=== PATIENT | female | born 1995 | race Two or more races ===

== ENCOUNTER 2024-12-02 11:48 | Observation (INO) | payer MEDICAID, SELFPAY ==
[2024-12-02] VITALS (17 sets, daily range): BP systolic 127–143; BP diastolic 77–96; PULSE 83–104; RESP 16–98; TEMP 36.7; O2SAT 97–98; BMI 36.5
[2024-12-02 13:03] LABS: Collection Type, Urine Clean Catch
[2024-12-02 13:04] LABS: Basophils % (Auto) 0 % (0-2.5); Eosinophils # (Auto) 0.2 Thou/mm3 (0.0-0.5); Eosinophils % (Auto) 2 % (0-10); Hematocrit 34.9 % (36.0-46.0); Hemoglobin 12.3 g/dL (12.0-16.0); Immature Granulocytes % (Auto) 0 % (0-0); Immature Granulocytes Auto 0.04 Thou/mm3 (0.00-0.00); Lymphocytes # (Auto) 2.4 Thou/mm3 (1.0-4.8); Lymphocytes % (Auto) 24 % (10-50); Mean Corpuscular HGB Conc 35.2 g/dl (31.0-37.0); Mean Corpuscular Volume 85 fL (80-100); Monocytes # (Auto) 0.6 Thou/mm3 (0.0-0.8); Monocytes % (Auto) 7 % (0-12); Neutrophils # (Auto) 6.6 Thou/mm3 (1.8-7.7); Neutrophils % (Auto) 67 % (37-80); Nucleated Red Blood Cell % 0 /100 WBC (0); Platelet Count 269 Thou/mm3 (140-440); RDW Standard Deviation 40.1 fL (36.4-46.3); White Blood Count 9.8 Thou/mm3 (3.6-11.0)
[2024-12-02 13:11] LABS: Bacteria,Urine Rare; Bilirubin,Urine Negative (Negative); Blood,Urine Negative (Negative); Clarity,Urine Clear (Clear/Hazy); Color,Urine Colorless (Lt Yel-Yel); Glucose, Urine Negative (Negative); Ketones,Urine Negative (Negative); Leukocyte Esterase,Urine Negative (Negative); Nitrite,Urine Negative (Negative); PH,Urine 6.5 (5.0-7.0); Protein,Urine Negative (Neg - Trace); RBC,Urine 1 /hpf (0-3); Specific Gravity,Urine 1.005 (1.001-1.035); Squamous Epithelial Cell,Urine 5 /hpf (0-5); Urobilinogen,Urine Negative mg/dL (0.0-1.0); WBC,Urine 1 /hpf (0-5)
[2024-12-02 13:33] LABS: Alanine Aminotransferase 21 U/L (10-49); Albumin, Serum 4.2 gm/dL (3.5-5.0); Albumin/Globulin Ratio 1.4 (1.2-2.2); Alkaline Phosphatase 159 U/L (46-116); Anion Gap 9 (7-16); Aspartate Amino Transferase 21 U/L (0-34); BUN/Creatinine Ratio 20 Ratio (12-20); Bilirubin,Total 0.4 mg/dL (0.3-1.2); Blood Urea Nitrogen 10 mg/dL (9-23); Calcium 9.9 mg/dL (8.3-10.6); Calcium (Corrected) 9.9 mg/dL (8.5-10.1); Carbon Dioxide 22.1 mMol/L (20.0-31.0); Chloride 104 mMol/L (98-107); Creatinine (Component) 0.5 mg/dL (0.6-1.3); Estimated Creatinine Clearance 156.8 mL/min (>60); Globulin 2.9 gm/dL (2.3-3.5); Glucose 67 mg/dL (74-106); LDH (Lactate Dehydrogenase) 166 U/L (120-246); Osmolality,Calculated 267 (275-295); Potassium 3.8 mMol/L (3.4-5.1); Sodium 135 mMol/L (136-145); Total Protein 7.1 gm/dL (5.7-8.2); Uric Acid 5.7 mg/dL (3.1-7.8); eGFR > 60 See Note
[2024-12-02 13:58] LABS: INR 0.9 (0.9-1.3); Partial Thromboplastin Time 29.5 Seconds (22.0-36.0)
[2024-12-02 13:59] LABS: Fibrinogen 620 mg/dL (175-375)
[2024-12-02] MEDS: BETAMET ACET/BETAMET NA PH (Celestone) 6 MG/ML VIAL 12 MG IM (14:32)
== END 2024-12-02 14:40 | disposition home or self-care (01) ==
PROVIDERS: Admitting Provider Specialist; Visit Provider Specialist
DX: O16.3 Unspecified maternal hypertension, third trimester (principal); Z3A.36 36 weeks gestation of pregnancy
CPT/HCPCS: 36415; 59899; 80053; 81001; 83615; 84550; 85025; 85384; 85610; 85730; 96372; J0702

== ENCOUNTER 2024-12-03 14:22 | Outpatient (CLI) | payer MEDICAID, SELFPAY ==
[2024-12-03] VITALS (40 sets, daily range): BP systolic 111–151; BP diastolic 62–97; PULSE 86–115; RESP 16–98; TEMP 36.6; O2SAT 96–100; BMI 36.8
[2024-12-03] MEDS: BETAMET ACET/BETAMET NA PH (Celestone) 6 MG/ML VIAL 12 MG IM (14:42)
[2024-12-03 15:56] LABS: Collection Type, Urine Clean Catch
[2024-12-03 15:58] LABS: Basophils % (Auto) 0 % (0-2.5); Eosinophils % (Auto) 0 % (0-10); Hematocrit 33.6 % (36.0-46.0); Hemoglobin 11.3 g/dL (12.0-16.0); Immature Granulocytes % (Auto) 2 % (0-0); Immature Granulocytes Auto 0.21 Thou/mm3 (0.00-0.00); Lymphocytes # (Auto) 2.4 Thou/mm3 (1.0-4.8); Lymphocytes % (Auto) 18 % (10-50); Mean Corpuscular HGB Conc 33.6 g/dl (31.0-37.0); Mean Corpuscular Hemoglobin 29.6 pg (25.0-35.0); Mean Corpuscular Volume 88 fL (80-100); Monocytes # (Auto) 0.8 Thou/mm3 (0.0-0.8); Monocytes % (Auto) 6 % (0-12); Neutrophils # (Auto) 9.7 Thou/mm3 (1.8-7.7); Neutrophils % (Auto) 74 % (37-80); Nucleated Red Blood Cell % 0 /100 WBC (0); Platelet Count 257 Thou/mm3 (140-440); RDW Standard Deviation 41.8 fL (36.4-46.3); Red Blood Count 3.82 Miln/mm3 (4.00-5.20); White Blood Count 13.2 Thou/mm3 (3.6-11.0)
[2024-12-03 16:03] LABS: Bacteria,Urine 1+; Bilirubin,Urine Negative (Negative); Blood,Urine Negative (Negative); Clarity,Urine Turbid (Clear/Hazy); Glucose, Urine Negative (Negative); Ketones,Urine Negative (Negative); Leukocyte Esterase,Urine Negative (Negative); Nitrite,Urine Negative (Negative); Protein,Urine Negative (Neg - Trace); RBC,Urine 1 /hpf (0-3); Specific Gravity,Urine 1.006 (1.001-1.035); Squamous Epithelial Cell,Urine 22 /hpf (0-5); Urobilinogen,Urine Negative mg/dL (0.0-1.0); WBC,Urine 1 /hpf (0-5)
[2024-12-03 16:04] LABS: Color,Urine Lt-Yellow (Lt Yel-Yel)
[2024-12-03 16:05] LABS: Protein Total, Urine Volume 2450 mL/24hr (600-1800)
[2024-12-03 16:06] LABS: Total Volume,Urine 2450 mL (600-1800)
[2024-12-03 16:08] LABS: Creatinine 24 Hour,Urine 1.2 gm/24hr (0.6-1.5); Creatinine,Urine 49 mg/dL (30-125); Patient Height,Urine 59 Inches; Patient Weight,Urine 183 Pounds; Protein Total, 24 hr Urine 809 mg/24hr (<149); Protein Total, Urine 33 mg/dL (1-14)
[2024-12-03 16:16] LABS: Alanine Aminotransferase 19 U/L (10-49); Albumin, Serum 3.9 gm/dL (3.5-5.0); Albumin/Globulin Ratio 1.4 (1.2-2.2); Alkaline Phosphatase 141 U/L (46-116); Anion Gap 10 (7-16); Aspartate Amino Transferase 11 U/L (0-34); BUN/Creatinine Ratio 18 Ratio (12-20); Bilirubin,Total 0.3 mg/dL (0.3-1.2); Blood Urea Nitrogen 9 mg/dL (9-23); Calcium 9.2 mg/dL (8.3-10.6); Calcium (Corrected) 9.3 mg/dL (8.5-10.1); Carbon Dioxide 20.8 mMol/L (20.0-31.0); Chloride 104 mMol/L (98-107); Creatinine (Component) 0.5 mg/dL (0.6-1.3); Estimated Creatinine Clearance 157.4 mL/min (>60); Globulin 2.8 gm/dL (2.3-3.5); Glucose 93 mg/dL (74-106); LDH (Lactate Dehydrogenase) 194 U/L (120-246); Osmolality,Calculated 268 (275-295); Potassium 4.2 mMol/L (3.4-5.1); Sodium 135 mMol/L (136-145); Total Protein 6.7 gm/dL (5.7-8.2); Uric Acid 5.4 mg/dL (3.1-7.8); eGFR > 60 See Note
[2024-12-03 16:30] LABS: Fibrinogen 524 mg/dL (175-375); INR 0.9 (0.9-1.3); Partial Thromboplastin Time 28.5 Seconds (22.0-36.0)
[2024-12-03 17:30] LABS: Collection Time,Urine 24 Hours; Creatinine Clearance Urine 163 mL/min (90-139); Serum Creatinine Result 0.5 mg/dL
== END 2024-12-03 17:30 | disposition home or self-care (01) ==
LOC: S4S1 14:24 → S4SX 14:24
PROVIDERS: Referring Provider Specialist; Visit Provider Specialist
DX: Z34.83 Encounter for supervision of other normal pregnancy, third trimester (principal); Z36.89 Encounter for other specified antenatal screening; Z3A.36 36 weeks gestation of pregnancy
CPT/HCPCS: 36415; 59025; 80053; 81001; 82575; 83615; 84156; 84550; 85025; 85384; 85610; 85730; 96372; J0702

== ENCOUNTER 2024-12-07 13:19 | Inpatient (IN) | payer MEDICAID, SELFPAY ==
[2024-12-07] VITALS (38 sets, daily range): BP systolic 121–166; BP diastolic 81–104; PULSE 82–96; RESP 14–98; TEMP 36.6–37.3; O2SAT 97–100; BMI 37.3
[2024-12-07] MEDS: RINGERS LACTATED 1000 ML 1,000 ML 100 ML IV (14:27)
[2024-12-07 14:32] LABS: Basophils % (Auto) 0 % (0-2.5); Eosinophils # (Auto) 0.2 Thou/mm3 (0.0-0.5); Eosinophils % (Auto) 1 % (0-10); Hematocrit 34.1 % (36.0-46.0); Hemoglobin 11.9 g/dL (12.0-16.0); Immature Granulocytes % (Auto) 1 % (0-0); Immature Granulocytes Auto 0.16 Thou/mm3 (0.00-0.00); Lymphocytes # (Auto) 2.5 Thou/mm3 (1.0-4.8); Lymphocytes % (Auto) 21 % (10-50); Mean Corpuscular HGB Conc 34.9 g/dl (31.0-37.0); Mean Corpuscular Hemoglobin 29.6 pg (25.0-35.0); Mean Corpuscular Volume 85 fL (80-100); Monocytes # (Auto) 0.6 Thou/mm3 (0.0-0.8); Monocytes % (Auto) 5 % (0-12); Neutrophils # (Auto) 8.6 Thou/mm3 (1.8-7.7); Neutrophils % (Auto) 71 % (37-80); Nucleated Red Blood Cell % 0 /100 WBC (0); Platelet Count 251 Thou/mm3 (140-440); RDW Standard Deviation 40.2 fL (36.4-46.3); Red Blood Count 4.02 Miln/mm3 (4.00-5.20); White Blood Count 12.1 Thou/mm3 (3.6-11.0)
--- NOTE | 2024-12-07 14:42 | PD.LDHP ---
Documentation for date of: 12/07/24 OB Labor/Induct. HPI History of Present Illness History of present illness: H and P dictated on STAT line #9 in [facility] [id number] History of Present Adequate Care: Yes Labs Labs: Negative: Chlamydia and Gonorrhea Meds Home Medications and Allergies Home Medications ?Medication ?Instructions ?Recorded ?Confirmed ?Type bridtcru-uaf-Hh-FA 1 mg 1 tab PO QDAY 12/02/24 12/03/24 History tablet Allergies Allergy/AdvReac Type Severity Reaction Status Date / Time bee venom protein (honey bee) Allergy Mild Redness of Verified 12/03/24 15:07 Skin pineapple Allergy Mild TONGUE Verified 12/03/24 15:07 BURNING, THROAT FEELS LIKE IT IS CLOSING OB Exam Physical Exam Vital signs: Temp Pulse Resp BP Pulse Ox 97.9 F 88 22 H 151/91 H 98 12/07/24 13:36 12/07/24 14:41 12/07/24 13:36 12/07/24 14:41 12/07/24 14:40 OB Results Labs 12/07/24 14:10 12/07/24 14:10 Labs: Short CBC 12/07/24 Range/Units 14:10 WBC 12.1 H (3.6-11.0) Thou/mm3 Hgb 11.9 L (12.0-16.0) g/dL Hct 34.1 L (36.0-46.0) % Plt Count 251 (140-440) Thou/mm3
[2024-12-07 14:43] LABS: Collection Type, Urine Clean Catch
[2024-12-07 14:50] LABS: Alanine Aminotransferase 19 U/L (10-49); Albumin, Serum 3.8 gm/dL (3.5-5.0); Albumin/Globulin Ratio 1.4 (1.2-2.2); Alkaline Phosphatase 144 U/L (46-116); Anion Gap 8 (7-16); Aspartate Amino Transferase 18 U/L (0-34); BUN/Creatinine Ratio 20 Ratio (12-20); Bilirubin,Total 0.3 mg/dL (0.3-1.2); Blood Urea Nitrogen 8 mg/dL (9-23); Calcium (Corrected) 9.2 mg/dL (8.5-10.1); Carbon Dioxide 24.9 mMol/L (20.0-31.0); Chloride 103 mMol/L (98-107); Creatinine (Component) 0.4 mg/dL (0.6-1.3); Estimated Creatinine Clearance 198.4 mL/min (>60); Globulin 2.8 gm/dL (2.3-3.5); Glucose 79 mg/dL (74-106); LDH (Lactate Dehydrogenase) 195 U/L (120-246); Osmolality,Calculated 269 (275-295); Sodium 136 mMol/L (136-145); Total Protein 6.6 gm/dL (5.7-8.2); Uric Acid 4.9 mg/dL (3.1-7.8); eGFR > 60 See Note
[2024-12-07 14:54] LABS: Fibrinogen 421 mg/dL (175-375); INR 0.9 (0.9-1.3); Partial Thromboplastin Time 27.6 Seconds (22.0-36.0); Prothrombin Time 10.1 Seconds (9.0-12.2)
[2024-12-07 15:01] LABS: Bacteria,Urine 1+; Bilirubin,Urine Negative (Negative); Blood,Urine 3+ (Negative); Clarity,Urine Turbid (Clear/Hazy); Color,Urine Colorless (Lt Yel-Yel); Glucose, Urine Negative (Negative); Ketones,Urine Negative (Negative); Leukocyte Esterase,Urine Positive (Negative); Nitrite,Urine Negative (Negative); Protein,Urine Trace (Neg - Trace); RBC,Urine 7 /hpf (0-3); Specific Gravity,Urine 1.006 (1.001-1.035); Squamous Epithelial Cell,Urine 5 /hpf (0-5); Urobilinogen,Urine Negative mg/dL (0.0-1.0); WBC,Urine 8 /hpf (0-5)
[2024-12-07] MEDS: CITRIC ACID/SODIUM CITR 15 ML UDC (BICITRA) 30 ML PO (15:03)
[2024-12-07] MEDS: FAMOTIDINE INJ 10 MG/ML VIAL 2 ML 20 MG IV (15:03)
[2024-12-07] MEDS: ceFAZolin/D5W 2 GM IV 2 GM/100 ML BAG IV (15:04)
[2024-12-07 15:08] LABS: Syphilis Nonreactive (Nonreactive)
[2024-12-07] MEDS: METOCLOPRAMIDE INJ 5 MG/ML VIAL 2 ML 10 MG IVP (15:10)
--- NOTE | 2024-12-07 15:10 | ESHP_ITS ---
RE: TEAGAN CUEVAS : 1995 DATE OF ADMISSION: 12/07/2024 HISTORY OF PRESENT ILLNESS: This is a 29-year-old 3 para 2 with due date of 01/04 with intrauterine at 36 weeks and 0 days with preeclampsia who presents to labor and delivery complaining of vaginal bleeding. The patient has had two previous deliveries and has a history of placental abruption at 36 weeks in the past. She was diagnosed with preeclampsia on 12/03. The 24-hour urine at that time revealed 809 mg of protein and she underwent betamethasone injection on 12/02 and 12/03. Subsequently, her blood sugars had been less than 160/110 until she presented to Labor and Delivery today with blood pressures of 159/104 and 154/98, reporting that she passed three walnut-sized clots when she woke up from a nap and she proceeded immediately to labor and delivery. ALLERGIES: NO KNOWN DRUG ALLERGIES. MEDICATIONS: multivitamin 1 tablet p.o. daily. PAST MEDICAL HISTORY: Preeclampsia, placental abruption, cervical dysplasia, appendicitis. PAST SURGICAL HISTORY: Appendectomy, delivery x2. Exploratory Laparatomy, evacuation of pelvic abscess, lysis of adhesions. FAMILY HISTORY: Maternal grandmother, diabetes. Maternal uncle, diabetes. OBSTETRIC HISTORY: 2016, 34 weeks, delivery 5 pound 6 ounce male, complicated by placental abruption. 2019, 37 weeks delivery, 7 pound 7 ounce female delivery. REVIEW OF SYSTEMS: She denies any chest pain, palpitations, cough, fever, shortness of breath, and lower extremity pain. She denies any headache, change in vision or right upper quadrant pain. She reports normal movement. She denies any leaking. PHYSICAL EXAMINATION: VITAL SIGNS: Blood pressure 159/104, heart rate 88, respirations 18, temperature 98.6. HEENT: Oropharynx and sclerae are clear. LUNGS: Clear to auscultation bilaterally. HEART: Regular rate and rhythm. ABDOMEN: Gravid with fundus at 35 cm. Old Pfannenstiel scar noted. PELVIC: Exam deferred. EXTREMITIES: Nontender. SKIN: No gross or lesion. NEUROLOGIC: No focal deficit. ASSESSMENT: Intrauterine at 36 weeks and 0 days, preeclampsia, suspected placental abruption, prior delivery elects repeat delivery. PLAN: delivery. Informed consent was obtained. The patient was made aware of the risks, complications, alternatives, and benefits of the proposed procedure and she agrees. DT: 14:40:04 TT: 15:08:00 Ref: [id number] - TID: [id number] MTDD
--- NOTE | 2024-12-07 15:32 | PD.LDDS ---
DS: Providers Provider Date of admission: 12/07/24 13:40 Primary care physician: Physician No Primary/Family Admitting Provider: Phani Biggs MD Attending Provider on Admission: Phani Biggs MD Attending Provider on DC: Phani Biggs MD Discharging Provider: Phani Biggs MD DS: Diagnosis Discharge Diagnosis (1) Third trimester bleeding, antepartum: Status: Acute (2) Preeclampsia: Status: Acute (3) S/P section: Status: Acute Problem List Completed Was Problem List Reviewed/Reconciled?: Yes Summary/Hosp Course Brief History: H and P dictated on STAT line #9 in [facility] [id number] Peripartum Data Procedures: Procedures Operation Date: 12/07/24 15:15 <No data on this case meets the specified criteria> Time Spent with Patient Time attestation: Total time spent providing and/or coordinating discharge services: Exam Vital Signs Temp Pulse Resp BP Pulse Ox 97.9 F 86 22 H 166/90 H 97 12/07/24 13:36 12/07/24 15:12 12/07/24 13:36 12/07/24 15:12 12/07/24 15:20 Discharge Plan Plan Patient Disposition: HOME (Self Care) Patient condition on transfer: Stable Prescriptions/Referrals Prescriptions/Med Rec: New hydrocodone-acetaminophen 5-325 mg tablet 1 tab PO Q6H MDD 4 PRN (Reason: pain) Qty: 20 0RF ibuprofen 600 mg tablet 600 mg PO Q6H PRN (Reason: pain) Qty: 30 0RF amoxicillin-pot clavulanate 875-125 mg tablet 1 tab PO Q12H Qty: 10 0RF sulfamethoxazole-trimethoprim [Bactrim DS] 800-160 mg tablet 1 tab PO Q12H Qty: 10 0RF ferrous sulfate 325 mg (65 mg iron) tablet 325 mg PO QDAY Qty: 60 1RF Continued wwxbrrkl-ves-Da-FA 1 mg Tablet 1 tab PO QDAY Referrals: No Primary/Family,Physician [Primary Care Provider] - Patient/Caregiver Discharge Instructions Discharge Activity: activity as tolerated Other Discharge Activity Instructions:: Follow up office 1 week. Education Materials: : Caring for Yourself, C Section Dc Print Language: Slovenian Activity Restrictions/Additional Instructions: Please follow up with your OB doctor in 1 week. sooner if needed. call today for a appointment Stand Alone Forms: Hallie Patino Info., Patient Portal Info Letter Discharge Order Discharge Orders: Discharge (Routine); Ordered 12/10/24 Ordered By: Phani Biggs Planned Discharge Date 12/11/24
--- NOTE | 2024-12-07 16:51 | PD.LDDELS ---
Data (Evangelista) Data Hx Section: Yes : 3 Para: 2 Term: 0 : 0 : 0 Delivery Data (Evangelista) Labor Data ROM Date: 12/07/24 ROM Time: 16:10 Rupture Type: AROM Amniotic Fluid: Clear Delivery Data EDC: 01/04/25 EDC calculated by:: LMP/early US confirmation Labor Onset Stage 1 Date: 12/07/24 Labor Onset Stage 1 Time: 16:10 Labor Onset Stage 2 Date: 12/07/24 Labor Onset Stage 2 Time: 16:10 Delivery Date: 12/07/24 Delivery Time: 16:10 Gestational age (weeks): 36 Gestational age (days): 0 Placenta Delivery Date: 12/07/24 Placenta Delivery Time: 16:10 Delivered by: Phani Biggs Delivery nurse: Jaylin Munguia Other staff at delivery: Nursery Nurse Other staff at delivery: Alana Melgar Delivery Method Delivery: Delivery Type: Repeat Presentation: Transverse Anesthesia Type Primary Anesthesia: Spinal Delivery Room Medications Other Intrapartum Medications: Yes Placenta Placenta Delivery: Manual Cord Sample: Cord Blood Obtained EBL Estimated blood loss (ml): 700 Umbilical Cord Placenta/Cord Complication: Placental Abruption Umbilical Vessels: 3 Nuchal Cord: None Body Cord: None Additional Procedures Lysis of adhesions Complications Complications: None [place] Data (Evangelista) Data Gender: Male Identification Band Number: [id number] Infant Weight Grams: 2610 1 Minute Total: 9 5 Minute Total: 9
[2024-12-07] MEDS: KETOROLAC INJ 30 MG/ML VIAL IVP (19:09)
--- NOTE | 2024-12-07 20:07 | ESOP_ITS ---
RE: TEAGAN CUEVAS : 1995 DATE OF OPERATION: 12/07/2024 PREOPERATIVE DIAGNOSES: 1. Intrauterine at 36 weeks. 2. Preeclampsia. 3. Third trimester vaginal bleeding. 4. Previous delivery, elects repeat delivery. POSTOPERATIVE DIAGNOSES: 1. Intrauterine at 36 weeks. 2. Preeclampsia. 3. Third trimester vaginal bleeding. 4. Previous delivery, elects repeat delivery. 5. Placental abruption. 6. Severe pelvic adhesions. 7. Malpresentation of fetus. PROCEDURE PERFORMED: Primary classical uterine incision via Pfannenstiel skin incision and lysis of adhesions. SURGEON: Phani Biggs DO SUPPLY COORDINATOR: GUILLE Ha ANESTHESIA: Spinal. ANESTHESIOLOGIST: Papa Flores CRNA ESTIMATED BLOOD LOSS: 700 mL COMPLICATIONS: None. COUNTS: Correct. PATHOLOGY: None. FINDINGS: A live male infant, transverse presentation, back up. Apgars 9/9, weight 2610 g, clear amniotic fluid, placental abruption, severe pelvic adhesions of the uterus to the anterior abdominal wall, the bowel to both uterosacral ligaments and broad ligament on both sides of the uterus. DESCRIPTION OF PROCEDURE: After proper informed consent was obtained and the patient was made aware of the risks, complications, alternatives, and benefits of the proposed procedure, she was taken to the operating room where she underwent induction of spinal anesthesia. She was placed in the dorsal lithotomy position. She was prepped and draped in the usual sterile fashion. A timeout was performed. A Pfannenstiel skin incision was made with the scalpel carried through to the underlying fascia with the Bovie. The fascia was nicked in the midline. Incision was extended bilaterally to the Bovie. The inferior aspect of the fascial incision was grasped with Kayleen clamps and elevated. The underlying rectus was dissected off with the Bovie. The rectus muscle was in the midline. The superior aspect of the fascial incision was grasped with Kayleen clamps and elevated, and the underlying rectus muscle dissected off. The entire abdomen, peritoneal cavity was then exposed and severe pelvic adhesions noted. The adhesions were lysed to free up the uterus with the Enseal X1 Large Jaw. The midline and fundal aspects of the uterus were visualized, but due to the severe adhesions and the transverse presentation of the fetus, the decision was made to perform a midline uterine incision or classical uterine incision. The incision was extended to the myometrium. When the cavity opened up, the placental abruption was evident. The placenta was anterior and was removed and the infant was converted from transverse to cephalic and delivered. The cord was clamped and cut. The mouth and nose were suctioned with bulb suction. Infant was sent off to the waiting pediatric staff. Cord blood was sent. The placenta was removed manually. The uterus was exteriorized and cleared of all clots and debris. The uterine incision was closed in 3 layers with 1 chromic catgut suture and hemostasis was achieved. Attention was then turned to the remaining adhesions, which were lysed with the Enseal X1 Large Jaw. Pelvis was copiously irrigated with warm normal saline solution. The muscle and peritoneum could not be closed as no suitable tissue was available for allowing closure. The fascia was then closed beginning at each angle and ending in the center in a running fashion with 0 Vicryl. The subcutaneous tissue was irrigated from normal saline solution and found to be hemostatic and closed with 2-0 chromic catgut suture in running fashion. The skin was closed with 4-0 Monocryl. A Dermabond Prineo dressing was applied. A sterile pressure dressing was applied. She tolerated the procedure well. Counts were correct. I discussed with the patient, the nature of her condition, the intraoperative findings, and expectation for recovery. All questions answered. DT: 16:57:01 TT: 20:06:00 Ref: [id number] - TID: [id number]
[2024-12-07] MEDS: cefTRIAXone/D5w 1gm IV premix 50 ML IV (20:36)
[2024-12-07 23:13] LABS: Amphetamine/Metham Scrn,Ur OB Negative (Negative); Benzoylecgonine Screen, Ur OB Negative (Negative); Opiate Screen,Urine OB Negative (Negative); THC Screen,Urine OB Negative (Negative)
[2024-12-07 23:23] LABS: Basophils % (Auto) 0 % (0-2.5); Eosinophils % (Auto) 0 % (0-10); Hematocrit 28.1 % (36.0-46.0); Hemoglobin 9.9 g/dL (12.0-16.0); Immature Granulocytes % (Auto) 1 % (0-0); Immature Granulocytes Auto 0.17 Thou/mm3 (0.00-0.00); Lymphocytes # (Auto) 1.1 Thou/mm3 (1.0-4.8); Lymphocytes % (Auto) 5 % (10-50); Mean Corpuscular HGB Conc 35.2 g/dl (31.0-37.0); Mean Corpuscular Volume 85 fL (80-100); Monocytes # (Auto) 0.4 Thou/mm3 (0.0-0.8); Monocytes % (Auto) 2 % (0-12); Neutrophils # (Auto) 20.2 Thou/mm3 (1.8-7.7); Neutrophils % (Auto) 92 % (37-80); Nucleated Red Blood Cell % 0 /100 WBC (0); Platelet Count 242 Thou/mm3 (140-440); RDW Standard Deviation 40.9 fL (36.4-46.3)
[2024-12-07] MEDS: OXYTOCIN in NS 20 units 20 UNIT/1,000 ML BAG 125 UNIT IV (23:50)
[2024-12-08] MEDS: KETOROLAC INJ 30 MG/ML VIAL IVP (02:18)
[2024-12-08 03:30] VITALS: BP 129/80; PULSE 82; RESP 18; TEMP 36.9; O2SAT 97
--- NOTE | 2024-12-08 07:19 | ESPR_ITS ---
RE: TEAGAN CUEVAS : 1995 DATE OF SERVICE: 12/08/2024 SUBJECTIVE: Postoperative day #1, the patient denies any problem or complaint. She has got adequate urine output with Parekh catheter in place. She denies any excessive vaginal bleeding. She denies any dizziness or lightheadedness. She denies any chest pain, palpitations, shortness of breath, or lower extremity pain. She is passing flatus. OBJECTIVE: Vital Signs: Blood pressure 129/80, heart rate 82, respirations 18, temperature 98.5, pulse ox is 97% on room air. Lungs: Clear to auscultation bilaterally. Heart: Regular rate and rhythm. Abdomen: Dressing dry and intact, nondistended. Extremities: Nontender. LABORATORY DATA: Hemoglobin pre-delivery is 11.9, post-delivery is 9.9. ASSESSMENT: 1. Postoperative day #1, status post delivery with lysis of adhesions. 2. Urinary tract infection. PLAN: Remove dressing. Encourage ambulation. Possible discharge home tomorrow. DT: 05:40:41 TT: 06:31:00 Ref: [id number] - TID: [id number] MTDD
[2024-12-08 08:00] VITALS: BP 141/95; PULSE 88; RESP 19; TEMP 36.9; O2SAT 97
[2024-12-08] MEDS: HYDROcodone/APAP 5/325 TABLET 1 TAB PO (08:45)
[2024-12-08] MEDS: SIMETHICONE 80 MG CHEW PO ×2 (08:45→17:12)
[2024-12-08] MEDS: cefTRIAXone/D5w 1gm IV premix 50 ML IV (08:46)
[2024-12-08] MEDS: IBUPROFEN TAB 400 MG TABLET 800 MG PO ×2 (10:24→18:30)
[2024-12-08 11:19] VITALS: BP 133/88; PULSE 93; RESP 19; TEMP 36.8; O2SAT 97
[2024-12-08] MEDS: ACETAMINOPHEN IVPB 1,000 MG/100 ML VIAL 250 MG IV (14:20)
[2024-12-08 16:00] VITALS: BP 134/83; PULSE 97; RESP 19; TEMP 36.7; O2SAT 97
[2024-12-08] MEDS: Milk Of Magnesia Susp 30 ML UDC PO ×2 (17:12→21:05)
[2024-12-08 19:42] VITALS: BP 133/89; PULSE 113; RESP 19; TEMP 36.9; O2SAT 97
[2024-12-09] VITALS (13 sets, daily range): BP systolic 116–149; BP diastolic 77–97; PULSE 101–123; RESP 20–24; TEMP 36.6–37; O2SAT 96–99
[2024-12-09] MEDS: IBUPROFEN TAB 400 MG TABLET 800 MG PO ×3 (02:30→18:22)
[2024-12-09] MEDS: HYDROcodone/APAP 5/325 TABLET 1 TAB PO ×2 (08:13→21:18)
[2024-12-09] MEDS: ACETAMINOPHEN 325 MG TABLET 650 MG PO ×2 (08:14→17:45)
[2024-12-09] MEDS: HYDROCORTISONE ACET CR 2.5% 30 GM TUBE PR ×2 (09:07→21:10)
[2024-12-09] MEDS: LIDOCAINE JELLY 2% (Urojet) 10 ML TUBE TOP (09:09)
[2024-12-09] MEDS: cefTRIAXone 1,000 MG, LIDOCAINE 1% 20 ML 2.1 ML IM (09:09)
--- NOTE | 2024-12-09 09:50 | XR_ITS ---
Examination: PA lateral chest 2 views TECHNIQUE: Upright PA lateral chest 2 views INDICATIONS: today with sepsis protocol FINDINGS: Normal heart size Prominent thoracic dextroscoliosis No lobar pneumonia No pulmonary edema IMPRESSION: No lobar pneumonia
--- NOTE | 2024-12-09 09:57 | ESPR_ITS ---
RE: TEAGAN CUEVAS : 1995 DATE OF SERVICE: 12/09/2024 S: Postop day #2, the patient denies any permanent complaints. She is voiding. She is ambulating. She tolerated diet. She denies any excessive vaginal bleeding. She denies any dizziness or lightheadedness. She denies any chest pain, palpitations, shortness of breath or lower extremity pain. She denies any depression or anxiety. O: Vital Signs: Blood pressure 127/77, heart rate 107, respirations 20, temperature 98.6, pulse ox 97% on room air. Lungs: Clear to auscultation bilaterally. Heart: Regular rate and rhythm. Abdomen: Incision is clear and intact. Fundus is firm. Extremities: Nontender. Laboratory Data: Hemoglobin pre-delivery is 11.3, post-delivery is 9.9. ASSESSMENT: 1. Postop day #2, status post delivery with lysis of adhesions. 2. Urinary tract infection. P: Discharge home on antibiotics and follow up in the office in one week. Discharge instructions given. DT: 07:27:41 TT: 09:54:00 Ref: [id number] - TID: [id number] [facility]
--- NOTE | 2024-12-09 10:32 | ESPR_ITS ---
RE: TEAGAN CUEVAS : 1995 DATE OF SERVICE: 12/09/2024 S: Postop day #2, called by RN indicating the patient is experiencing a headache that resolves when she lies flat consistent with postdural puncture headache. The patient denies any stiff neck or photophobia. O: Vital Signs: Blood pressure 127/77, heart rate 107, respirations 20, temperature is 98.5. ASSESSMENT: Postdural puncture headache. P: Anesthesia evaluation for possible blood patch. Encourage flatbed lying, pain management as necessary, canceled discharge. DT: 08:57:03 TT: 10:31:00 Ref: [id number] - TID: [id number]
[2024-12-09 10:39] LABS: Lactate (Lactic Acid) 1.1 mMol/L (0.4-2.0)
[2024-12-09 10:42] LABS: Basophils % (Auto) 0 % (0-2.5); Eosinophils # (Auto) 0.3 Thou/mm3 (0.0-0.5); Eosinophils % (Auto) 2 % (0-10); Hematocrit 29.1 % (36.0-46.0); Hemoglobin 9.9 g/dL (12.0-16.0); Immature Granulocytes % (Auto) 1 % (0-0); Immature Granulocytes Auto 0.11 Thou/mm3 (0.00-0.00); Lymphocytes # (Auto) 2.1 Thou/mm3 (1.0-4.8); Lymphocytes % (Auto) 13 % (10-50); Mean Corpuscular Hemoglobin 29.6 pg (25.0-35.0); Mean Corpuscular Volume 87 fL (80-100); Monocytes # (Auto) 0.9 Thou/mm3 (0.0-0.8); Monocytes % (Auto) 6 % (0-12); Neutrophils # (Auto) 12.4 Thou/mm3 (1.8-7.7); Neutrophils % (Auto) 78 % (37-80); Nucleated Red Blood Cell % 0 /100 WBC (0); Platelet Count 280 Thou/mm3 (140-440); RDW Standard Deviation 44.3 fL (36.4-46.3); Red Blood Count 3.34 Miln/mm3 (4.00-5.20); White Blood Count 15.8 Thou/mm3 (3.6-11.0)
[2024-12-09] MEDS: AMPICILLIN/SULBAC INJ 3 GM in SODIUM CHLORIDE 0.9% (P) 100 ML IV ×3 (11:00→23:35)
[2024-12-09] MEDS: RINGERS LACTATED 1000 ML 1,000 ML 999 ML IV (11:04)
[2024-12-09 11:07] LABS: INR 0.9 (0.9-1.3); Partial Thromboplastin Time 21.1 Seconds (22.0-36.0)
[2024-12-09 11:11] LABS: Alanine Aminotransferase 17 U/L (10-49); Albumin, Serum 3.9 gm/dL (3.5-5.0); Albumin/Globulin Ratio 1.4 (1.2-2.2); Alkaline Phosphatase 120 U/L (46-116); Anion Gap 7 (7-16); Aspartate Amino Transferase 13 U/L (0-34); BUN/Creatinine Ratio 23 Ratio (12-20); Bilirubin,Total 0.3 mg/dL (0.3-1.2); Blood Urea Nitrogen 9 mg/dL (9-23); Calcium 9.1 mg/dL (8.3-10.6); Calcium (Corrected) 9.2 mg/dL (8.5-10.1); Carbon Dioxide 26.7 mMol/L (20.0-31.0); Chloride 102 mMol/L (98-107); Creatinine (Component) 0.4 mg/dL (0.6-1.3); Estimated Creatinine Clearance 198.4 mL/min (>60); Globulin 2.8 gm/dL (2.3-3.5); Glucose 98 mg/dL (74-106); Osmolality,Calculated 270 (275-295); Procalcitonin 0.16 ng/ml (0.0-0.49); Sodium 136 mMol/L (136-145); Total Protein 6.7 gm/dL (5.7-8.2); eGFR > 60 See Note
--- NOTE | 2024-12-09 11:52 | PC.SS ---
RESIDENTIAL COORDINATOR conducted bedside contact with the patient to address nursing referral indicating patient was crying and feeling overwhelmed. Present with patient at bedside was FOB, Gabino Gamez. Patient gave permission for FOB to be present during discussion. RESIDENTIAL COORDINATOR introduced self, role and basis of referral. Patient confirmed possessing emotional distress. Patient informed RESIDENTIAL COORDINATOR distress was situational. Patient denied feeling overwhelmed at current time. Patient denies experiencing emotional distress presently. FOB commented that patient observed to be calm and composed. Patient denies possessing a history of mental health. Patient denies current intent/plan of SI/HI. Infant, Woo; is the patient?s 3rd child. Ages of other children are 8 and 5 years old. delivered via . OB services conducted with Dr. Biggs. Patient consistent with OB appointments. Patient resides with FOB. Patient is aligned with [facility]. Patient is not receiving SNAP or TANF. Patient denies history of alcohol/drug abuse. Patient denies CWS intervention. Patient denies episodes of domestic violence. Patient plans on bottle feeding the . Patient has access to appropriate supplies and equipment; to include a car seat. FOB will provide transportation upon discharge. Patient describes possessing support system consisting of FOB and extended family. RESIDENTIAL COORDINATOR provided the patient with community resources to include [facility] and [facility] Line. No further intervention required at this time, clinical social work aide will be available to address any further concerns. RESIDENTIAL COORDINATOR updated bedside nurse.
[2024-12-09] MEDS: RINGERS LACTATED 1000 ML 1,000 ML 125 ML IV ×2 (11:55→17:57)
[2024-12-09 11:57] LABS: Fibrinogen 737 mg/dL (175-375)
[2024-12-09] MEDS: DOCUSATE SOD 100 MG CAPSULE PO (17:44)
--- NOTE | 2024-12-09 18:59 | PC.NURSE ---
notified @1700 of continued maternal tachycardia between 110-130. Patient complaining of headache unrelieved by sphenopalatin block done by provider Papa and Tylenol. Another dose of Tylenol and Motrin given per order @4268. provider Paap called to assess patient headache. Care ongoing.
[2024-12-09] MEDS: SIMETHICONE 80 MG CHEW PO (21:19)
[2024-12-10 04:30] VITALS: BP 138/89; PULSE 110; RESP 18; TEMP 36.8; O2SAT 98
[2024-12-10] MEDS: IBUPROFEN TAB 400 MG TABLET 800 MG PO (05:08)
[2024-12-10] MEDS: AMPICILLIN/SULBAC INJ 3 GM in SODIUM CHLORIDE 0.9% (P) 100 ML IV (05:08)
[2024-12-10 05:35] LABS: Basophils % (Auto) 0 % (0-2.5); Eosinophils # (Auto) 0.5 Thou/mm3 (0.0-0.5); Eosinophils % (Auto) 4 % (0-10); Hematocrit 24.2 % (36.0-46.0); Immature Granulocytes % (Auto) 1 % (0-0); Lymphocytes # (Auto) 2.2 Thou/mm3 (1.0-4.8); Lymphocytes % (Auto) 17 % (10-50); Mean Corpuscular HGB Conc 33.1 g/dl (31.0-37.0); Mean Corpuscular Hemoglobin 29.4 pg (25.0-35.0); Mean Corpuscular Volume 89 fL (80-100); Monocytes # (Auto) 0.8 Thou/mm3 (0.0-0.8); Monocytes % (Auto) 6 % (0-12); Neutrophils # (Auto) 9.2 Thou/mm3 (1.8-7.7); Neutrophils % (Auto) 72 % (37-80); Nucleated Red Blood Cell % 0 /100 WBC (0); Platelet Count 256 Thou/mm3 (140-440); Red Blood Count 2.72 Miln/mm3 (4.00-5.20); White Blood Count 12.9 Thou/mm3 (3.6-11.0)
[2024-12-10 08:48] VITALS: BP 132/89; PULSE 103; RESP 18; TEMP 36.6; O2SAT 98
[2024-12-10] MEDS: HYDROcodone/APAP 5/325 TABLET 1 TAB PO (11:55)
[2024-12-10] MEDS: SIMETHICONE 80 MG CHEW PO (11:55)
--- NOTE | 2024-12-10 12:29 | ESPR_ITS ---
RE: TEAGAN CUEVAS : 1995 DATE OF SERVICE: 12/10/2024 S: Postop day #3, the patient denies any problems or complaints. She is voiding. She is ambulating. She is tolerating regular diet. She is passing flatus. She denies any excessive vaginal bleeding. She denies any dizziness or lightheadedness. She denies any chest pain, palpitations, shortness of breath, or lower extremity pain. Her headache has resolved. O: Vital Signs: Blood pressure 132/89, heart rate 103, respirations 18, temperature 97.9, pulse oximetry 98% on room air. Lungs: Clear to auscultation bilaterally. Heart: Regular rate and rhythm. Abdomen: Incision is clear and intact. Fundus is firm. Extremities: Nontender. LABORATORY DATA: Hemoglobin 8.0, white blood cell count 12.9. ASSESSMENT: Postop day #3 status post delivery with lysis of adhesions, anemia, but hemodynamically stable, endometritis. P: Discharge home on antibiotics, Augmentin, and Bactrim. Continue iron. Follow up in the office in 1 week. Discharge instructions given. DT: 11:04:36 TT: 12:27:00 Ref: [id number] - TID: [id number]
== END 2024-12-10 12:15 | disposition home or self-care (01) | DRG 540 ==
LOC: S4SX 15:09 → S4NX 15:27
PROVIDERS: Admitting Provider Specialist; Visit Provider Specialist
PROC: 10D00Z0 Extraction of Products of Conception, High, Open Approach (ICD-10-PCS; CPT 59514; principal; 2024-12-07 15:00)
DX: O14.94 Unspecified pre-eclampsia, complicating childbirth (principal); Z37.0 Single live birth; Z3A.36 36 weeks gestation of pregnancy; O34.219 Maternal care for unspecified type scar from previous cesarean delivery; O32.2XX0 Maternal care for transverse and oblique lie, not applicable or unspecified; O45.93 Premature separation of placenta, unspecified, third trimester; O89.4 Spinal and epidural anesthesia-induced headache during the puerperium
CPT/HCPCS: 36415; 59025; 71046; 80053; 80307; 81001; 83605; 83615; 84145; 84550; 85025; 85384; 85610; 85730; 86780; 86850; 86900; 86901; 86923; 87040; 87086; A4649; J0131; J0295; J0689; J0696; J1100; J1885; J2274; J2371; J2405; J2590; J2704; J2765; J3010; J3490; J7120; A9270; J1920; J2270